=== PATIENT | male | born 2000 | race Two or more races ===

== ENCOUNTER 2024-08-09 21:00 | Emergency (ER) | payer OTHER ==
[~2024-08-09] VITALS: Ht 167.6 cm; Wt 81.2 kg
[2024-08-09] MEDS ORDERED: WELLBUTRIN SR150 MG PO (21:30)
[2024-08-09] MEDS ORDERED: ADDERALL 10 MG10 MG (21:30)
[2024-08-09] MEDS ORDERED: KETOROLAC TROMETHAMINE 30 MG VIAL IV ONE (22:00)
[2024-08-09] MEDS ORDERED: BARIUM SULFATE 450 ML ORAL.SUSP PO ONE (22:02)
[2024-08-09 23:23] LABS: HEMATOCRIT 44.7 % (39.0-48.0); HEMOGLOBIN 15.3 g/dL (13-16.00); MEAN CELL VOLUME 84.8 fL (80.0-100.00); MEAN CORPUSCULAR HGB CONC 34.2 g/dl (32.0-36.0); PLATELET COUNT 283 K/uL (150-450); RED BLOOD COUNT 5.27 M/uL (4.00-6.00); RED CELL DISTRIBUTION WIDTH 12.7 % (11.5-14.5)
[2024-08-09 23:24] LABS: PH,URINE 6.5 (5.0-8.0); URINE APPEARANCE Clear; URINE BILIRRUBIN Negative (NEGATIVE); URINE BLOOD Negative; URINE COLOR Yellow; URINE GLUCOSE Negative (NEGATIVE); URINE KETONE Trace (NEGATIVE); URINE LEUKOCYTE Negative; URINE NITRATE Negative; URINE PROTEIN Negative (NEGATIVE)
[2024-08-09 23:28] LABS: URINE BACTERIA 26.9 uL (0.0-1933); URINE RBC 15.1 uL (0.0-20.8)
[2024-08-09 23:30] LABS: CALCIUM 9.1 mg/dL (8.5-10.1); CREATININE SERUM 1.17 mg/dL (0.70-1.30); GFR 75.35; POTASSIUM 3.62 mEq/L (3.5-5.1)
[2024-08-09 23:37] LABS: URINE CRYSTALS MANY /HPF; URINE EPITHELIAL CELLS 0.7 uL (0.0-38.8); URINE WBC 1.4 uL (0.0-23.2)
[2024-08-09 23:47] VITALS: BP 121/84; O2SAT 98
[2024-08-10] MEDS ORDERED: LEVSIN/SL0.125 MG SL (03:55)
== END 2024-08-10 04:01 ==
LOC: ER 21:02
PROVIDERS: Emergency Medicine
DX: R10.32 Left lower quadrant pain (principal); K76.0 Fatty (change of) liver, not elsewhere classified